=== PATIENT | female | born 1985 | race Two or more races ===

== ENCOUNTER 2018-10-15 02:53 | Emergency (ER) | payer OTHER ==
[~2018-10-15] VITALS: Ht 157.5 cm; Wt 57.4 kg
--- NOTE | 2018-10-15 03:21 | NUR ---
PT C/O LOWER ABD PAIN THAT RADIATES TO LOWER BACK. States that shes 17 weeks and that she was bleeding a little bit this morning. PT ALSO STATES "I'm also scared because the baby is not movng". AT BEDSIDE FOR EXAMINE. PT GIVEN CUP AND TAKEN TO BATHROOM FOR UA, AMBULATED WITH STEADY GAIT
[2018-10-15 03:39] LABS: MICROSCOPIC INDICATED
[2018-10-15 03:40] LABS: BASOPHILS # (AUTO) 0.03 x10^3/uL (0-0.1); BASOPHILS % (AUTO) 0 % (0-1); EOSINOPHILS # (AUTO) 0.04 x10^3/uL (0-0.4); EOSINOPHILS % (AUTO) 0 % (1-7); LYMPHOCYTES # (AUTO) 2.16 x10^3/uL (1-3.4); LYMPHOCYTES % (AUTO) 21 % (22-44); MD NO; MEAN CORPUSCULAR HEMOGLOBIN 29.7 pg (27.0-34.8); MEAN CORPUSCULAR HGB CONC 33.6 g/dL (32.4-35.8); MEAN CORPUSCULAR VOLUME 88.5 fL (80-100); MONOCYTES # (AUTO) 0.47 x10^3/uL (0.2-0.8); MONOCYTES % (AUTO) 5 % (2-9); NEUTROPHILS # (AUTO) 7.86 x10^3/uL (1.8-6.8); NEUTROPHILS % (AUTO) 74 % (42-75); PLATELET COUNT 224 x10^3/uL (130-400); RED BLOOD COUNT 4.44 x10^6/uL (3.82-5.3); RED CELL DISTRIBUTION WIDTH 12.6 % (9.6-15.2)
--- NOTE | 2018-10-15 03:48 | NUR ---
PT C/O CRAMPING, GIVEN WARM BLANKET TO PLACE ON ABDOMEN
[2018-10-15 03:52] LABS: CULTURE INDICATED? YES
[2018-10-15 03:53] LABS: ALANINE AMINOTRANSFERASE 18 U/L (12-78); ALBUMIN 3.3 g/dL (3.4-5.0); ANION GAP 10 mmol/L (5-15); CALCIUM 8.7 mg/dL (8.5-10.1); CHLORIDE 111 mmol/L (98-107); CREATININE 0.46 mg/dL (0.55-1.02)
[2018-10-15] MEDS ORDERED: ACETAMINOPHEN 325 MG TABLET ONE (03:53)
[2018-10-15] MEDS ORDERED: DICYCLOMINE 10 MG CAPSULE ONE (03:53)
[2018-10-15 03:55] LABS: ALKALINE PHOSPHATASE 76 U/L (45-117); BILIRUBIN,TOTAL 0.2 mg/dL (0.2-1.0); TOTAL PROTEIN 7.6 g/dL (6.4-8.2)
--- NOTE | 2018-10-15 03:57 | NUR ---
PT MEDICATED PER [facility]
[2018-10-15] MEDS ORDERED: ACETAMINOPHEN 325 MG TABLET PO ONE (04:00)
[2018-10-15] MEDS ORDERED: DICYCLOMINE 10 MG CAPSULE PO ONE (04:00)
--- NOTE | 2018-10-15 04:12 | NUR ---
PT IN US
--- NOTE | 2018-10-15 05:15 | NUR ---
PT RESTING ON STRETCHER, STILL HAVING CRAMPING BUT SLIGHTLY BETTER. AWAITING DISPO
--- NOTE | 2018-10-15 05:56 | NUR ---
CALLED TO US ABOUT RAD READ AND THEY ASKED THIS RN TO CALL [facility]; CALLED [facility] AND THEY REPORTED THAT THEY DO NOT HAVE ANY IMAGING FOR THIS PT. CALLED BACK TO US AND HE STATED THAT HE WILL CALL [facility].
[2018-10-15 06:08] VITALS: BP 119/72
--- NOTE | 2018-10-15 06:40 | NUR ---
PER US TECH US BEING READ AT THIS TIME.
[2018-10-15] MEDS ORDERED: ACETAMINOPHEN 650 MG/20.3 ML UDC ONE (07:35)
--- NOTE | 2018-10-15 08:00 | NUR ---
MD TO BEDSIDE TO PROVIDE DC INSTRUCTIONS. PT LEFT WITHOUT WRITTEN DC PAPERWORK.
== END 2018-10-15 08:23 | disposition home or self-care (01) ==
LOC: ED 05:38
DX: O20.0 Threatened abortion (principal); O21.9 Vomiting of pregnancy, unspecified; M54.5 Low back pain; Z3A.17 17 weeks gestation of pregnancy; Z90.49 Acquired absence of other specified parts of digestive tract; Z90.89 Acquired absence of other organs
CPT/HCPCS: 36415; 76815; 80053; 81001; 83690; 85025; 87086; 99284